=== PATIENT | male | born 1960 | race Caucasian/White ===

== ENCOUNTER 2018-01-15 16:44 | Inpatient (IN) | payer OTHER ==
[~2018-01-15] VITALS: Ht 157.5 cm; Wt 72.6 kg
[2018-01-15 16:53] VITALS: BP 105/69
--- NOTE | 2018-01-15 16:59 | NUR ---
PATIENT AMBULATED TO ER BED 4.
[2018-01-15] MEDS ORDERED: NACL 0.9% 1,000 ML IV ONE (17:00)
--- NOTE | 2018-01-15 17:00 | NUR ---
PATIENT PRESENTS TO ED WITH C/O BLEEDING . PT STATES HE HAD ROUTINE COLONSCOPY DONE TODAY. Patient STATES MD FOUND POLYPS AND REMOVED THEM. Heavy rectal bleeding since then with clots. Patient is pale and tachycardiac. Patient denies any cp, sob, or dizziness. . DENIES N/V/D; SKIN IS PINK/WARM/DRY; AAOX4 WITH EVEN AND STEADY GAIT; LUNGS CLEAR BL; HR EVEN AND REGULAR; PT DENIES ANY FEVER, CP, SOB, OR COUGH AT THIS TIME; PATIENT STATES PAIN OF 0/10 AT THIS TIME; VSS; PATIENT POSITIONED FOR COMFORT; HOB ELEVATED; BEDRAILS UP X2; BED DOWN. ER MD MADE AWARE OF PT STATUS.
[2018-01-15 17:34] LABS: BASOPHILS % (AUTO) 0.3 % (0.0-2.0); EOSINOPHILS # (AUTO) 0.2 K/uL (0-0.4); EOSINOPHILS % (AUTO) 1.8 % (0.0-4.0); HEMATOCRIT 36.1 % (36-52); HEMOGLOBIN 11.9 g/dL (12.0-18.0); LYMPHOCYTES # (AUTO) 0.5 K/uL (2.0-11.5); LYMPHOCYTES % (AUTO) 6.3 % (20.5-51.1); MEAN CORPUSCULAR HEMOGLOBIN 29 pg (27-31); MEAN CORPUSCULAR HGB CONC 33 g/dL (33-37); MEAN CORPUSCULAR VOLUME 87.2 fL (80-94); MONOCYTES # (AUTO) 0.6 K/uL (0.8-1.0); NEUTROPHILS % (AUTO) 84.6 % (42.2-75.2); PLATELET COUNT (AUTO) 212 K/uL (140-450); RED BLOOD CELL COUNT(AUTO) 4.14 MIL/uL (4.20-6.10); RED CELL DISTRIBUTION WIDTH 13.4 % (11.6-13.7); WHITE BLOOD COUNT (AUTO) 8.3 K/uL (4.8-10.8)
[2018-01-15 17:44] LABS: ANION GAP 15.6 (8-16); CARBON DIOXIDE 23.3 mmol/L (21-32); CREATININE 2.1 mg/dL (0.7-1.3); POTASSIUM 4.9 mmol/L (3.5-5.1)
[2018-01-15 17:50] LABS: TOTAL BILIRUBIN 0.7 mg/dL (0.0-1.0)
--- NOTE | 2018-01-15 18:35 | NUR ---
PATIENT SEEN LEANING ON THE DOOR BATHROOM DOOR ENTRANCE. PATIENT IS ALERT BUT FATIGUED. PATIENT IS COOL AND CLAMMY. PATIENT ASSISTED BACK TO BED. PATIENT DENIES ANY FALL. MD NOTIFIED OF PATIENT'S STATUS
--- NOTE | 2018-01-15 19:00 | NUR ---
CHARGE NURSE TAVIA SPOKE WITH DR BELLA AND INFORMED HIM ABOUT PATIENT'S NEAR SYNCOPAL EPISODE AND PATIENT'S CURRENT STATUS. AGREED TO ADMIT PATIENT IN ICU
[2018-01-15] MEDS ORDERED: NACL 0.45% 1,000 ML IV SCH ×2 (19:09→19:10)
--- NOTE | 2018-01-15 19:17 | NUR ---
Pt report given to NELLY LACY. Transfer of care at this time.
--- NOTE | 2018-01-15 19:40 | NUR ---
Patient will be admitted to [facility]. Admited to ICU. Will go to room 8. Belongings list completed. Report to JESSICA VILLEGAS.
--- NOTE | 2018-01-15 19:42 | NUR ---
RECEIVED PT FROM ER. PT AFEBRILE. AO X4. FOLLOWS COMMANDS. ABLE TO VERBALIZE NEEDS. BILAT CARD BRUSHER PRESENT. ON ROOM AIR. SINUS RHYTHM ON MONITOR. BOWEL SOUNDS HYPOACTIVE X 4 QUADRANTS. ABD SOFT, NONTENDER. NPO AT THIS TIME. PT CONTINENT TO BOWEL AND BLADDER, SKIN INTACT. IV SITE L FA 20G. PATENT INTACT. NO SIGNS OF ACUTE DISTRESS NOTED. BED IN LOWEST POSITION. CALL LIGHT WITHIN REACH. WILL CONTINUE TO MONITOR.
[2018-01-15 20:00] VITALS: BP 112/63
--- NOTE | 2018-01-15 20:01 | NUR ---
SON AT BEDSIDE AT THIS TIME
[2018-01-15] MEDS ORDERED: DEXT 5% / NACL 0.9% 500 ML IV SCH (20:30)
[2018-01-15] MEDS ORDERED: DEXTROSE 50% 50 ML SYR IVP PRN (20:30)
--- NOTE | 2018-01-15 20:30 | NUR ---
DR. GUIDO AT BEDSIDE TO EVALUATE PT. WILL CONTINUE TO FOLLOW UP ADDITIONAL ORDERS.
[2018-01-15] MEDS ORDERED: ONDANSETRON 4 MG/2 ML VIAL IVP PRN (20:35)
[2018-01-15] MEDS ORDERED: MORPHINE SULFATE 2 MG/ML SYR IVP PRN (20:35)
[2018-01-15] MEDS ORDERED: PANTOPRAZOLE 40 MG INJ VIAL IVP SCH (20:35)
[2018-01-15] MEDS ORDERED: MORPHINE SULFATE 4 MG/ML SYR IVP PRN (20:35)
[2018-01-15] MEDS: BLOOD GLUCOSE MONITORING 1 DEV DEV FS SCH (21:00)
--- NOTE | 2018-01-15 21:30 | NUR ---
BS CHECK AT THIS TIME. 325 MG/DL. ADMINISTERED 8 UNITS INSULIN VIA SLIDING SCALE.
[2018-01-15 22:00] VITALS: BP 118/65
[2018-01-15] MEDS: INSULIN LISPRO SLIDING SCALE 100 UNITS/ML VIAL SUBQ PRN (22:23)
--- NOTE | 2018-01-15 23:20 | NUR ---
PT REFUSES TO USE BEDPAN AND BEDSIDE COMMODE FOR BOWEL MOVEMENT. INSISTS ON USING REST ROOM EXPLAINED RISK V. BENEFITS X3. PT STILL REFUSES.
[2018-01-16] VITALS (12 sets, daily range): BP systolic 128–150; BP diastolic 63–81
--- NOTE | 2018-01-16 00:44 | NUR ---
LAB AT BEDSIDE AT THIS TIME FOR CBC BLOOD DRAW
[2018-01-16 00:45] LABS: HEMOGLOBIN 8.6 g/dL (12.0-18.0); MEAN CORPUSCULAR HEMOGLOBIN 29 pg (27-31); MEAN CORPUSCULAR HGB CONC 34 g/dL (33-37); MEAN CORPUSCULAR VOLUME 85.9 fL (80-94); PLATELET COUNT (AUTO) 149 K/uL (140-450); RED BLOOD CELL COUNT(AUTO) 2.91 MIL/uL (4.20-6.10); RED CELL DISTRIBUTION WIDTH 13.3 % (11.6-13.7); WHITE BLOOD COUNT (AUTO) 5.5 K/uL (4.8-10.8)
[2018-01-16 01:14] LABS: EOSINOPHILS % (MANUAL) 1 % (0-4); LYMPHOCYTES % (MANUAL) 13 % (20-46); MONOCYTES % (MANUAL) 9 % (5-12)
[2018-01-16] MEDS: DEXT 5% / NACL 0.9% 1,000 ML IV SCH ×3 (01:17→09:24)
--- NOTE | 2018-01-16 02:06 | NUR ---
CALLED RADIOLOGY DEPARTMENT TO SEE IF PT CAN BE TAKEN FOR CT SCAN. ACCORDING TO [facility], THEY ARE STILL BUST AND WILL JUST CALL ONCE THEY ARE READY FOR PT. WILL TRY AGAIN.
--- NOTE | 2018-01-16 03:46 | NUR ---
PT LEFT THE UNIT FOR A CT SCAN OF ABD/PELVIS. PT WAS ATTACHED TO TRANSPORT MONITOR. SR ON MONITOR. PT AAOX4. PT ACCOMPANIED BY NELLY.
--- NOTE | 2018-01-16 04:15 | NUR ---
PT HAD BM THIS TIME VIA BEDSIDE COMMODE. BLOOD IN STOOL NOTED. NO SIGNS OF ACUTE DISTRESS AT THIS TIME.
--- NOTE | 2018-01-16 05:13 | NUR ---
LAB AT BEDSIDE AT THIS TIME FOR BLOOD DRAW
[2018-01-16 06:03] LABS: BASOPHILS % (AUTO) 0.2 % (0.0-2.0); EOSINOPHILS # (AUTO) 0.1 K/uL (0-0.4); EOSINOPHILS % (AUTO) 2.1 % (0.0-4.0); HEMATOCRIT 24.3 % (36-52); HEMOGLOBIN 8.2 g/dL (12.0-18.0); LYMPHOCYTES # (AUTO) 0.5 K/uL (2.0-11.5); LYMPHOCYTES % (AUTO) 9.7 % (20.5-51.1); MEAN CORPUSCULAR HEMOGLOBIN 29 pg (27-31); MEAN CORPUSCULAR HGB CONC 34 g/dL (33-37); MEAN CORPUSCULAR VOLUME 86.4 fL (80-94); MONOCYTES # (AUTO) 0.7 K/uL (0.8-1.0); MONOCYTES % (AUTO) 13.5 % (1.7-9.3); NEUTROPHILS # (AUTO) 3.9 K/uL (1.8-7.7); NEUTROPHILS % (AUTO) 74.5 % (42.2-75.2); PLATELET COUNT (AUTO) 148 K/uL (140-450); RED BLOOD CELL COUNT(AUTO) 2.81 MIL/uL (4.20-6.10); RED CELL DISTRIBUTION WIDTH 13.3 % (11.6-13.7); WHITE BLOOD COUNT (AUTO) 5.2 K/uL (4.8-10.8)
[2018-01-16 06:41] LABS: MAGNESIUM 1.8 mg/dL (1.8-2.4); PHOSPHORUS 2.8 mg/dL (2.5-4.9)
[2018-01-16] MEDS: BLOOD GLUCOSE MONITORING 1 DEV DEV FS SCH ×4 (06:44→20:53)
[2018-01-16] MEDS: INSULIN LISPRO SLIDING SCALE 100 UNITS/ML VIAL SUBQ PRN ×3 (06:45→20:59)
--- NOTE | 2018-01-16 06:45 | NUR ---
BLOOD SUGAR 166MG/DL. 2 UNITS INSULIN ADMINISTERED VIA SLIDING SCALE
--- NOTE | 2018-01-16 07:30 | NUR ---
ENDORSED CARE TO INCOMING SHIFT FOR CONTINUITY OF CARE
--- NOTE | 2018-01-16 07:30 | NUR ---
Received patient in bed, alert oriented to self, time, place, situation, calm, denies pain, clear breath sounds, no cough, soft non tender abdomen, normal bowel sounds, informed patient is NPO except medications, no signs of bleeding right now. IV fluid 100 ml/hr at left antecubital gauge 20-site asymptomatic, no edema, no wounds. Kept head of bed up, call jaramillo within reach
--- NOTE | 2018-01-16 08:39 | NUR ---
PT RESTING IN BED COMFORTABLY. NO SOB, NO ACUTE DISTRESS NOTED. NO RECTAL BLEEDING NOTED. PT DENIES PAIN. DENIES TO PUT SCDS ON LOWER EXTREMITIES. STATED HE WANTS TO SLEEP AT THIS TIME. KEEP PT COVERED WITH BLANKETS, ON COMFORTABLE POSITION.
[2018-01-16] MEDS ORDERED: PANTOPRAZOLE 40 MG INJ VIAL IVP SCH (09:04)
--- NOTE | 2018-01-16 09:33 | NUR ---
PATIENT REQUESTED TO SPEAK TO HIS MD. TELEPHONED DR. WILSON. UPDATED OF PATIENT'S STATUS. RECEIVED ORDERS FOR IV IRON ONE TIME PER PHARMACY PROTOCOL AND CLEAR LIQUID DIET. READBACK VERIFIED WITH 2ND RN HAN
[2018-01-16] MEDS ORDERED: LEVOFLOXACIN 250 MG/D5 PREMIX 50 ML IV SCH (10:30)
[2018-01-16 10:35] LABS: HEMATOCRIT 23.2 % (36-52); HEMOGLOBIN 7.8 g/dL (12.0-18.0)
[2018-01-16 10:38] LABS: ANION GAP 13.5 (8-16); CARBON DIOXIDE 20.5 mmol/L (21-32); CREATININE 1.3 mg/dL (0.7-1.3)
[2018-01-16] MEDS ORDERED: SODIUM FERRIC GLUCONATE 125 MG in NACL 0.9% 100 ML IV SCH (11:00)
[2018-01-16] MEDS ORDERED: MAG SULF 2000 MG/WATER PREMIX 50 ML IV ONE (11:05)
[2018-01-16] MEDS ORDERED: POTASSIUM CHLORIDE 10 MEQ TABER PO SCH (11:30)
[2018-01-16] MEDS: NACL 0.9% 1,000 ML IV SCH (11:51)
--- NOTE | 2018-01-16 12:30 | NUR ---
GIVEN PATIENT HIS MEAL TRAY OF CLEAR LIQUIDS. HEAD OF BED UP. PATIENT ABLE TO FEED SELF. WILL CONTINUE TO MONITOR. CALL PANIAGUA WITHIN REACH
--- NOTE | 2018-01-16 12:48 | NUR ---
DR. BOYD PAGED AND HE CALLED BACK INFORMED OF PATIENT'S CHEST PAIN EPISODE AND MORPHINE GIVEN, BLOOD SUGAR 170, AND HEMOGLOBIN 7.8 PER MD CHECK TROPONIN, HOLD INSULIN FOR NOW, AND NO FURTHER ORDERS TO TRANSFUSE
[2018-01-16] MEDS: metroNIDAZOLE 500 MG/NS PREMIX 100 ML IV SCH ×2 (13:04→20:54)
[2018-01-16 13:19] LABS: BASOPHILS % (AUTO) 0.2 % (0.0-2.0); EOSINOPHILS # (AUTO) 0.2 K/uL (0-0.4); EOSINOPHILS % (AUTO) 3.5 % (0.0-4.0); HEMATOCRIT 24.6 % (36-52); HEMOGLOBIN 8.3 g/dL (12.0-18.0); LYMPHOCYTES # (AUTO) 0.7 K/uL (2.0-11.5); LYMPHOCYTES % (AUTO) 13.2 % (20.5-51.1); MEAN CORPUSCULAR HEMOGLOBIN 29 pg (27-31); MEAN CORPUSCULAR HGB CONC 34 g/dL (33-37); MEAN CORPUSCULAR VOLUME 86.6 fL (80-94); MONOCYTES # (AUTO) 0.6 K/uL (0.8-1.0); MONOCYTES % (AUTO) 12.6 % (1.7-9.3); NEUTROPHILS # (AUTO) 3.6 K/uL (1.8-7.7); NEUTROPHILS % (AUTO) 70.5 % (42.2-75.2); PLATELET COUNT (AUTO) 142 K/uL (140-450); RED BLOOD CELL COUNT(AUTO) 2.84 MIL/uL (4.20-6.10); RED CELL DISTRIBUTION WIDTH 13.4 % (11.6-13.7); WHITE BLOOD COUNT (AUTO) 5.2 K/uL (4.8-10.8)
[2018-01-16] MEDS ORDERED: METF1000 PO (14:18)
[2018-01-16] MEDS ORDERED: ORE25 PO (14:18)
[2018-01-16] MEDS ORDERED: ATOR40TA PO (14:18)
[2018-01-16] MEDS ORDERED: SITA100T8 PO (14:18)
[2018-01-16] MEDS ORDERED: LOSA50TA27 PO (14:18)
[2018-01-16] MEDS: MAGNESIUM SULFATE 1GM in DEXTROSE 5% 100 ML PREMIX IV SCH ×2 (14:28→15:30)
--- NOTE | 2018-01-16 14:58 | NUR ---
PT RESTING IN BED COMFORTABLY. NO RESPIRATORY DISTRESS NOTED. DENIES CHEST PAIN, SOB OR CHEST DISCOMFORT. DENIES NAUSEA. NO ACTIVE BLEEDING AT THIS TIME. VS WNL. WILL CONTINUE TO MONITOR.
--- NOTE | 2018-01-16 15:47 | NUR ---
MEDICATION RECONCILIATION DONE. DR. WELCH MADE AWARE ABOUT NEED TO REVIEW AND ORDER HOME MEDS.
--- NOTE | 2018-01-16 15:49 | NUR ---
RECEIVED CALL FROM DR. PIMENTEL. MADE AWARE ABOUT RECENT H&H RESULT. UPDATED PT CONDITION. WILL FOLLOW UP ON ORDER.
--- NOTE | 2018-01-16 15:57 | NUR ---
BLOOD SUGAR [id number]. WILL GIVE DUE HUMALOG PER SLIDING SCALE. PATIENT WILL ADVANCE DIET PER DR. AKBAR ORDERS Addendum: 01/16/18 at 1600 by Nichole Monique RN CORRECTION PER DR. WILSON
[2018-01-16] MEDS ORDERED: metFORMIN 500 MG TAB PO SCH (17:00)
--- NOTE | 2018-01-16 17:27 | NUR ---
PT BEING EVALUATED BY DR. PIMENTEL.
[2018-01-16] MEDS: ACETAMINOPHEN 325 MG TAB PO PRN (18:38)
--- NOTE | 2018-01-16 18:53 | NUR ---
patient awake oriented whole shift. No more chest pain, sinus rhythm, blood pressure with elevated episodes SBP 150-16Os, home medication losartan started. Peripheral line at left antecubital asymptomatic.Skin intact. Patient currently ambulated on standby assist to the restroom on bus monitor
[2018-01-16] MEDS ORDERED: LOSARTAN 50 MG TAB PO SCH (19:00)
--- NOTE | 2018-01-16 19:30 | NUR ---
AIRWAY CONTROLLER NOTIFIED ABOUT UNABLE TO GET JANUVIA MED FROM [facility]. WILL WAIT FOR MEDS TO ADMINISTER.
[2018-01-16 19:33] LABS: BASOPHILS % (AUTO) 0.3 % (0.0-2.0); EOSINOPHILS # (AUTO) 0.2 K/uL (0-0.4); EOSINOPHILS % (AUTO) 2.7 % (0.0-4.0); HEMATOCRIT 26.6 % (36-52); HEMOGLOBIN 8.9 g/dL (12.0-18.0); LYMPHOCYTES # (AUTO) 0.8 K/uL (2.0-11.5); LYMPHOCYTES % (AUTO) 10.6 % (20.5-51.1); MEAN CORPUSCULAR HEMOGLOBIN 29 pg (27-31); MEAN CORPUSCULAR HGB CONC 33 g/dL (33-37); MEAN CORPUSCULAR VOLUME 87.5 fL (80-94); MONOCYTES # (AUTO) 0.8 K/uL (0.8-1.0); MONOCYTES % (AUTO) 11.3 % (1.7-9.3); NEUTROPHILS # (AUTO) 5.5 K/uL (1.8-7.7); NEUTROPHILS % (AUTO) 75.1 % (42.2-75.2); PLATELET COUNT (AUTO) 169 K/uL (140-450); RED BLOOD CELL COUNT(AUTO) 3.04 MIL/uL (4.20-6.10); RED CELL DISTRIBUTION WIDTH 13.5 % (11.6-13.7); WHITE BLOOD COUNT (AUTO) 7.4 K/uL (4.8-10.8)
--- NOTE | 2018-01-16 19:33 | NUR ---
PATIENT BACK TO BED WITHOUT INCIDENCE. REPORT GIVEN TO NIGHT RN
--- NOTE | 2018-01-16 20:00 | NUR ---
AAOX4, SR ON THE MONITOR, ON ROOM AIR, RESPIRATIONS NORMAL, IVF NS AT 60 ML/HR, NO BLOODY STOOLS NOTED, DENIES PAIN, FAMILY AT BEDSIDE.
[2018-01-16] MEDS ORDERED: DEXT 5% / NACL 0.9% 1,000 ML IV SCH (20:30)
[2018-01-16] MEDS ORDERED: SIMVASTATIN 40 MG TAB PO SCH (21:00)
--- NOTE | 2018-01-16 21:00 | NUR ---
REPORT GIVEN AND ENDORSED CARE TO SUZETTE SANCHEZ RN.
--- NOTE | 2018-01-16 21:05 | NUR ---
RECEIVED REPORT FROM NELLY POWER FOR CONTINUITY OF CARE. VS STABLE AT THIS TIME. SR ON MONITOR. PT DENIES PAIN AT THIS TIME. DENIES ANY DISCOMFORT. PT IN ROOM AIR. RESPIRATIONS ARE EVEN AND UNLABORED. PERIPHERAL IV ACCESS IN PLACE; PATENT, INTACT AND ASYMPTOMATIC. ALL SAFETY PRECAUTIONS ARE IN PLACE. WILL CONTINUE TO MONITOR PT.
--- NOTE | 2018-01-16 22:30 | NUR ---
PT WAS ASKING FOR EAR PLUGS. WAITING FOR PANTS CUTTER TO BRING SOME IN THE UNIT. VS STABLE. PT DENIES ANY DISCOMFORT AT THIS TIME.
[2018-01-17] VITALS (8 sets, daily range): BP systolic 129–155; BP diastolic 52–79
--- NOTE | 2018-01-17 00:10 | NUR ---
RESPIRATIONS ARE EVEN AND UNLABORED. PT IN BED AND LAYING DOWN. SR ON MONITOR. VS WNL.
[2018-01-17 01:10] LABS: BASOPHILS % (AUTO) 0.2 % (0.0-2.0); EOSINOPHILS # (AUTO) 0.2 K/uL (0-0.4); EOSINOPHILS % (AUTO) 3.4 % (0.0-4.0); HEMATOCRIT 22.3 % (36-52); HEMOGLOBIN 7.6 g/dL (12.0-18.0); LYMPHOCYTES # (AUTO) 0.7 K/uL (2.0-11.5); LYMPHOCYTES % (AUTO) 14.4 % (20.5-51.1); MEAN CORPUSCULAR HEMOGLOBIN 29 pg (27-31); MEAN CORPUSCULAR HGB CONC 34 g/dL (33-37); MONOCYTES # (AUTO) 0.6 K/uL (0.8-1.0); MONOCYTES % (AUTO) 12.6 % (1.7-9.3); NEUTROPHILS # (AUTO) 3.5 K/uL (1.8-7.7); NEUTROPHILS % (AUTO) 69.4 % (42.2-75.2); PLATELET COUNT (AUTO) 136 K/uL (140-450); RED BLOOD CELL COUNT(AUTO) 2.59 MIL/uL (4.20-6.10); RED CELL DISTRIBUTION WIDTH 13.5 % (11.6-13.7); WHITE BLOOD COUNT (AUTO) 5.1 K/uL (4.8-10.8)
--- NOTE | 2018-01-17 02:19 | NUR ---
STILL NO CHANGE IN PT CONDITION. NO BLOOD STOOLS. ALL SAFETY PRECAUTIONS ARE IN PLACE. CALL LIGHT WITHIN REACH. BED AT LOWEST POSSIBLE POSITION. WILL CONTINUE TO MONITOR.
[2018-01-17] MEDS: NACL 0.9% 1,000 ML IV SCH ×2 (03:50→10:00)
--- NOTE | 2018-01-17 04:26 | NUR ---
VS STABLE AT THIS TIME. PT DOES NOT APPEAR TO BE IN ANY DISTRESS OR IN ANY DISCOMFORT. ALL SAFETY PRECAUTIONS ARE IN PLACE. URINAL AND CALL LIGHT WITHIN REACH.
[2018-01-17] MEDS: metroNIDAZOLE 500 MG/NS PREMIX 100 ML IV SCH ×2 (05:06→12:21)
--- NOTE | 2018-01-17 05:35 | NUR ---
SPECIMEN FOR CBC ALREADY DRAWN BY MESSAGE AND DELIVERY SERVICE PRICER. WILL WAIT FOR THE RESULT.
[2018-01-17 05:57] LABS: BASOPHILS % (AUTO) 0.3 % (0.0-2.0); EOSINOPHILS # (AUTO) 0.2 K/uL (0-0.4); EOSINOPHILS % (AUTO) 3.4 % (0.0-4.0); HEMATOCRIT 23.1 % (36-52); LYMPHOCYTES # (AUTO) 0.7 K/uL (2.0-11.5); LYMPHOCYTES % (AUTO) 15.1 % (20.5-51.1); MEAN CORPUSCULAR HEMOGLOBIN 30 pg (27-31); MEAN CORPUSCULAR HGB CONC 35 g/dL (33-37); MEAN CORPUSCULAR VOLUME 86.6 fL (80-94); MONOCYTES # (AUTO) 0.5 K/uL (0.8-1.0); MONOCYTES % (AUTO) 11.6 % (1.7-9.3); NEUTROPHILS # (AUTO) 3.2 K/uL (1.8-7.7); NEUTROPHILS % (AUTO) 69.6 % (42.2-75.2); PLATELET COUNT (AUTO) 130 K/uL (140-450); RED BLOOD CELL COUNT(AUTO) 2.66 MIL/uL (4.20-6.10); RED CELL DISTRIBUTION WIDTH 13.5 % (11.6-13.7); WHITE BLOOD COUNT (AUTO) 4.6 K/uL (4.8-10.8)
[2018-01-17] MEDS: BLOOD GLUCOSE MONITORING 1 DEV DEV FS SCH ×2 (06:45→11:37)
--- NOTE | 2018-01-17 07:11 | NUR ---
REPORT GIVEN TO MORNING RN, LASHAE, FOR CONTINUITY OF CARE. VS STABLE AT THIS TIME.
--- NOTE | 2018-01-17 07:25 | NUR ---
RECEIVED REPORT FROM BODY SPECIALIST RN. PT IS ASLEEP, EASILY AROUSABLE, AAOX4, ABLE TO FOLLOW COMMANDS AND MAKE NEEDS KNOWN. VSS, AFEBRILE. SINUS RHYTHM ON MONITOR, + S1 S2 HEARD. PT IS ON ROOM AIR, NO SOB OR RESPIRATORY NOTED. BREATHING EVEN AND UNLABORED. NO C/O CHEST PAIN. PERIPHERAL IV G20 TO LEFT ANTECUBITAL ASYMPTOMATIC, PATENT AND INTACT, RUNNING IV FLUID NORMAL SALINE AT 60 ML/HR. ABDOMEN SOFT, NONTENDER. NO ACTIVE BLEEDING NOTED. ABLE TO MOVE ALL EXTREMITIES. PALPABLE PULSES ON ALL EXTREMITIES. SKIN IS DRY AND WARM TO TOUCH. BED IN LOWEST POSITION AND CALL LIGHT WITHIN REACH. WILL CONTINUE TO MONITOR.
[2018-01-17 07:30] LABS: MAGNESIUM 1.7 mg/dL (1.8-2.4)
--- NOTE | 2018-01-17 08:13 | NUR ---
BREAKFAST PROVIDED. PT STATED HE WANTED TO SLEEP MORE AND WILL HAVE IT LATER.
[2018-01-17] MEDS ORDERED: PANTOPRAZOLE 40 MG INJ VIAL IVP SCH (09:00)
[2018-01-17] MEDS ORDERED: LOSARTAN 50 MG TAB PO SCH (09:00)
[2018-01-17] MEDS ORDERED: HYDROCHLOROTHIAZIDE 25 MG TAB PO SCH (09:00)
--- NOTE | 2018-01-17 09:06 | NUR ---
PT HAD BREAKFAST. MEDICATIONS ADMINISTERED ORDERED. PT TOLERATED WELL.
--- NOTE | 2018-01-17 09:35 | NUR ---
DR. WELCH MADE AWARE OF MAGNESIUM LEVEL OF 1.7. ORDER RECEIVED. ALSO MADE AWARE THAT THE LAST H&H WAS AT 0600. PER DR. WELCH, NO NEED TO CONTINUE H&H Q6HR.
[2018-01-17] MEDS ORDERED: MAG SULF 2000 MG/WATER PREMIX 50 ML IV SCH (10:00)
--- NOTE | 2018-01-17 10:33 | NUR ---
DR. WELCH IN TO SEE PT. WILL FOLLOW UP ON ORDERS.
[2018-01-17] MEDS ORDERED: CIPR500T4 PO (10:38)
[2018-01-17] MEDS ORDERED: METR250T2 PO (10:38)
--- NOTE | 2018-01-17 10:40 | NUR ---
PT SEEN AND EXAMINED BY DR. GUIDO. WILL FOLLOW UP WITH NEW ORDERS.
[2018-01-17 10:49] LABS: ANION GAP 12.1 (8-16); CARBON DIOXIDE 24.6 mmol/L (21-32); CREATININE 1.4 mg/dL (0.7-1.3); POTASSIUM 4.7 mmol/L (3.5-5.1)
--- NOTE | 2018-01-17 11:14 | NUR ---
PATIENT HAS BEEN SCREENED AND CATEGORIZED MODERATE NUTRITION RISK. PATIENT WILL BE SEEN WITHIN 3-5 DAYS OF ADMISSION. 01/18/18 01/20/18 DANIEL WEAVER MBA, RD
[2018-01-17] MEDS ORDERED: SODIUM FERRIC GLUCONATE 125 MG in NACL 0.9% 100 ML IV SCH (12:00)
--- NOTE | 2018-01-17 12:10 | NUR ---
NO CHANGE IN CONDITION AT THIS TIME. RESTING COMFORTABLY. NO ACUTE DISTRESS NOTED. VSS.
[2018-01-17] MEDS: INSULIN LISPRO SLIDING SCALE 100 UNITS/ML VIAL SUBQ PRN (12:22)
[2018-01-17] MEDS: ACETAMINOPHEN 325 MG TAB PO PRN (12:43)
--- NOTE | 2018-01-17 13:15 | NUR ---
PT HAD A MODERATE AMOUNT OF BROWN COLORED BOWEL MOVEMENT. NO BLEEDING NOTED.
--- NOTE | 2018-01-17 14:30 | NUR ---
PT IS RESTING COMFORTABLY AT THIS TIME. NO S/SX OF DISTRESS NOTED. VSS. WILL CONTINUE TO MONITOR.
--- NOTE | 2018-01-17 15:14 | NUR ---
PT DISCHARGED HOME ACCOMPANIED BY VIA PRIVATE VEHICLE. DISCHARGE INSTRUCTIONS AND EDUCATIONS GIVEN. PT AND STATED THEY WILL FOLLOW UP WITH PCP. PT IS IN STABLE CONDITION UPON DISCHARGE.
== END 2018-01-17 15:14 | disposition home or self-care (01) | DRG 810 ==
LOC: MED 16:44 → MIC 19:02
PROVIDERS: ADMIT Internal Medicine; ATTEND Internal Medicine
DX: K91.840 Postprocedural hemorrhage of a digestive system organ or structure following a digestive system procedure (principal); E11.22 Type 2 diabetes mellitus with diabetic chronic kidney disease; I95.9 Hypotension, unspecified; K57.32 Diverticulitis of large intestine without perforation or abscess without bleeding; E78.5 Hyperlipidemia, unspecified; N18.9 Chronic kidney disease, unspecified; I12.9 Hypertensive chronic kidney disease with stage 1 through stage 4 chronic kidney disease, or unspecified chronic kidney disease; R07.89 Other chest pain; Y83.8 Other surgical procedures as the cause of abnormal reaction of the patient, or of later complication, without mention of misadventure at the time of the procedure; Z79.84 Long term (current) use of oral hypoglycemic drugs; Z79.899 Other long term (current) drug therapy; Z87.442 Personal history of urinary calculi; Y92.89 Other specified places as the place of occurrence of the external cause
CPT/HCPCS: 36415; 80048; 80053; 82948; 83036; 83735; 84100; 84484; 85018; 85025; 85610; 85730; 87081; 93005; 96360; 99285; C9113; J1815; J1956; J2270; J2916; J3475; J3490; J7030; J7042

== ENCOUNTER 2018-08-20 15:02 | Inpatient (IN) | payer OTHER ==
[~2018-08-20] VITALS: Ht 157.5 cm; Wt 68.5 kg
[2018-08-20 02:00] VITALS: BP 108/71
[2018-08-20] MEDS: NACL 0.9% 1,000 ML IV SCH (11:05)
[~2018-08-20 15:02] MED LIST: ATOR40TA PO; CIPR500T4 PO; LOSA50TA66 PO; METF1000 PO; METR250T2 PO; ORE25 PO; SITA100T8 PO
--- NOTE | 2018-08-20 15:11 | NUR ---
PATIENT AMBULATED TO ER BED 4.
[2018-08-20 15:21] VITALS: BP 137/82
--- NOTE | 2018-08-20 15:25 | NUR ---
C/O PALPITATIONS AND WEAKNESS X10 DAYS. PT DENIES SOB, N/V/FEVER OR RECENT ILLNESS. PT REPORTS HR BEING IN THE 115-120S AT HOME. FSBS IS 181. PT DENIES BLURRY VISION, IS ALERT AND ANSWERING QUESTIONS APPROPRIATELY. PERRLA. BLE/BUE STRENGTH EQUAL. BED IN LOW POSITION, SIDE RAIL UP X1, PT PUT IN GOWN AND PLACED ON BEDSIDE VETERANS SERVICES SPECIALIST AT THIS TIME.
--- NOTE | 2018-08-20 16:00 | NUR ---
ERMD AT BEDSIDE
--- NOTE | 2018-08-20 17:00 | NUR ---
PT RESTING IN BED, BLANKET PROVIDED PER REQUEST. SON AT BEDSIDE
[2018-08-20 17:08] LABS: BASOPHILS % (AUTO) 0.3 % (0.0-2.0); EOSINOPHILS # (AUTO) 0.4 K/uL (0-0.4); EOSINOPHILS % (AUTO) 4.7 % (0.0-4.0); HEMATOCRIT 34.1 % (36-52); HEMOGLOBIN 11.4 g/dL (12.0-18.0); LYMPHOCYTES # (AUTO) 1.2 K/uL (2.0-11.5); LYMPHOCYTES % (AUTO) 15.6 % (20.5-51.1); MEAN CORPUSCULAR HEMOGLOBIN 28 pg (27-31); MEAN CORPUSCULAR HGB CONC 33 g/dL (33-37); MEAN CORPUSCULAR VOLUME 85.3 fL (80-94); MONOCYTES # (AUTO) 0.7 K/uL (0.8-1.0); MONOCYTES % (AUTO) 8.6 % (1.7-9.3); NEUTROPHILS # (AUTO) 5.5 K/uL (1.8-7.7); NEUTROPHILS % (AUTO) 70.8 % (42.2-75.2); PLATELET COUNT (AUTO) 175 K/uL (140-450); RED CELL DISTRIBUTION WIDTH 13.2 % (11.6-13.7); WHITE BLOOD COUNT (AUTO) 7.7 K/uL (4.8-10.8)
[2018-08-20 17:16] LABS: ANION GAP 15.7 (8-16); CARBON DIOXIDE 25.7 mmol/L (21-32); CREATININE 2.2 mg/dL (0.7-1.3); POTASSIUM 5.4 mmol/L (3.5-5.1)
[2018-08-20 17:18] LABS: MAGNESIUM 1.8 mg/dL (1.8-2.4)
[2018-08-20 17:23] LABS: ALBUMIN 3.8 g/dL (3.4-5.0); TOTAL BILIRUBIN 0.5 mg/dL (0.0-1.0)
[2018-08-20 17:25] LABS: PROTHROMBIN TIME 9.3 secs (10.8-13.4)
[2018-08-20 17:37] LABS: THYROID STIMULATING HORMONE 0.48 uIU/mL (0.34-3.74)
[2018-08-20] MEDS ORDERED: DEXTROSE 50% 50 ML SYR IVP ONE (17:40)
[2018-08-20] MEDS ORDERED: INSULIN REGULAR, HUMAN 100 UNIT/ML VIAL IVP ONE (17:40)
[2018-08-20] MEDS ORDERED: ALBUTEROL 0.083% 2.5 MG/3 ML NEBU INH ONE (17:40)
[2018-08-20] MEDS ORDERED: SODIUM BICARBONATE 8.4% PFS 50 MEQ/50 ML SYR IVP ONE (17:40)
[2018-08-20] MEDS ORDERED: SODIUM POLYSTYRENE 15 GM/60 ML UDBTL PO ONE (17:40)
[2018-08-20] MEDS ORDERED: NACL 0.9% 1,000 ML IV ONE (17:40)
[2018-08-20] MEDS ORDERED: DEXTROSE 50% 50 ML SYR IVP PRN (18:00)
[2018-08-20] MEDS ORDERED: ONDANSETRON 4 MG/2 ML VIAL IVP PRN (18:05)
[2018-08-20] MEDS ORDERED: ACETAMINOPHEN 325 MG TAB PO PRN (18:05)
[2018-08-20] MEDS ORDERED: MORPHINE SULFATE 4 MG/ML SYR IVP PRN (18:05)
[2018-08-20] MEDS ORDERED: HYDROcodone/APAP 5/325 MG 1 TAB TAB PO PRN (18:05)
[2018-08-20] MEDS ORDERED: hydrALAZINE 20 MG/ML VIAL IVP PRN (18:05)
[2018-08-20] MEDS ORDERED: ALBUTEROL 0.083% 2.5 MG/3 ML NEBU INH PRN (18:05)
--- NOTE | 2018-08-20 18:40 | NUR ---
Patient will be admitted to care of DR. CHRISTIAN. Admited to TELEMETRY. Will go to room 120A. Belongings list completed. Report to NELLY DAVID.
--- NOTE | 2018-08-20 18:40 | NUR ---
RECEIVED ENDORSEMENT FROM ED NURSE. PATIENT ARRIVED VIA GURNEY. VITALS WERE OBTAINED. PATIENT IS STABLE, AAOX4, DIVEHI SPEAKING. WILL ENDORSE TO WEB SERVICES PROFESSIONAL.
--- NOTE | 2018-08-20 19:15 | NUR ---
ENDORSED TO EYEGLASS INSPECTOR NURSE FOR CONTINUITY OF CARE. PATIENT IS STABLE AT THIS TIME.
--- NOTE | 2018-08-20 19:15 | NUR ---
RECEIVED REPORT AND PATIENT FROM AM SHIFT NURSE. PATIENT WAS ADMITTED AT 1830. PATIENT IS LYING DOWN, AWAKE, ALERT, ORIENTED, WITH FAMILY MEMBERS AT BEDSIDE. PATIENT IS ON ROOM AIR, HAS IV ON LEFT AC SALINE LOCK. PATIENT DENIES ANY PAIN AT THIS TIME. BED IS IN LOW POSITION, SIDE RAILS ARE UP, AND CALL LIGHT IS WITHIN REACH. WILL MONITOR PATIENT THROUGHOUT SHIFT.
--- NOTE | 2018-08-20 21:30 | NUR ---
MADE ROUNDS. PATIENT LYING DOWN, ASLEEP WITH NO SIGNS OF DISTRESS. WILL CONTINUE TO MONITOR PATIENT.
[2018-08-20] MEDS: BLOOD GLUCOSE MONITORING 1 DEV DEV FS SCH (21:57)
[2018-08-20] MEDS: INSULIN LISPRO SLIDING SCALE 100 UNITS/ML VIAL SUBQ PRN (22:58)
--- NOTE | 2018-08-20 23:04 | NUR ---
HUNG IV NORMAL SALINE 1,000 ML AT 75 ML/HR RATE. PATIENT IS TOLERATING IV FLUID WELL.
[2018-08-21] VITALS: BP 111/63
--- NOTE | 2018-08-21 | NUR ---
VITAL SIGNS TAKEN AND CHARTED. PATIENT DENIES PAIN AT THIS TIME. WILL CONTINUE TO MONITOR PATIENT.
--- NOTE | 2018-08-21 00:45 | NUR ---
PATIENT COMPLAINS OF CHEST PAIN 08/25. ADMINISTERED PO PAIN MEDICATION ORDERED. PATIENT TOLERATED IT WELL. WILL CONTINUE TO MONITOR PATIENT.
--- NOTE | 2018-08-21 02:00 | NUR ---
MADE ROUNDS. PATIENT LYING DOWN, ASLEEP, WITH NO SIGNS OF DISTRESS.
[2018-08-21 04:00] VITALS: BP 133/73
--- NOTE | 2018-08-21 04:00 | NUR ---
VITAL SIGNS TAKEN AND CHARTED. PATIENT STATED PAIN MEDICATION GIVEN AT 0045 WAS EFFECTIVE. DENIES PAIN AT THIS TIME. WILL CONTINUE TO MONITOR PATIENT.
--- NOTE | 2018-08-21 06:00 | NUR ---
PATIENT IS LYING DOWN, ASLEEP, WITH NO SIGNS OF DISTRESS.
--- NOTE | 2018-08-21 07:15 | NUR ---
ENDORSED PATIENT TO AM SHIFT NURSE FOR CONTINUITY OF CARE. PATIENT IS LYING DOWN, ASLEEP, AND IN STABLE CONDITION AT THIS TIME.
[2018-08-21] MEDS: NACL 0.9% 1,000 ML IV SCH ×2 (07:21→12:17)
[2018-08-21] MEDS: BLOOD GLUCOSE MONITORING 1 DEV DEV FS SCH ×4 (07:47→21:10)
[2018-08-21 08:00] VITALS: BP 142/76
--- NOTE | 2018-08-21 08:00 | NUR ---
PT STABLE UPON MORNING ROUNDS. PT LYING DOWN, AWAKE. DENIES PAIN.
[2018-08-21 08:10] LABS: BASOPHILS % (AUTO) 0.5 % (0.0-2.0); EOSINOPHILS # (AUTO) 0.3 K/uL (0-0.4); EOSINOPHILS % (AUTO) 5.9 % (0.0-4.0); HEMATOCRIT 29.5 % (36-52); LYMPHOCYTES # (AUTO) 1.1 K/uL (2.0-11.5); LYMPHOCYTES % (AUTO) 22.6 % (20.5-51.1); MEAN CORPUSCULAR HEMOGLOBIN 29 pg (27-31); MEAN CORPUSCULAR HGB CONC 34 g/dL (33-37); MEAN CORPUSCULAR VOLUME 84.8 fL (80-94); MONOCYTES # (AUTO) 0.5 K/uL (0.8-1.0); MONOCYTES % (AUTO) 9.4 % (1.7-9.3); NEUTROPHILS % (AUTO) 61.6 % (42.2-75.2); PLATELET COUNT (AUTO) 145 K/uL (140-450); RED BLOOD CELL COUNT(AUTO) 3.47 MIL/uL (4.20-6.10); RED CELL DISTRIBUTION WIDTH 13.2 % (11.6-13.7); WHITE BLOOD COUNT (AUTO) 4.8 K/uL (4.8-10.8)
[2018-08-21 08:39] LABS: ANION GAP 12.1 (8-16); CARBON DIOXIDE 26.1 mmol/L (21-32); CREATININE 1.7 mg/dL (0.7-1.3); POTASSIUM 4.2 mmol/L (3.5-5.1)
[2018-08-21 08:42] LABS: MAGNESIUM 1.5 mg/dL (1.8-2.4); PHOSPHORUS 3.9 mg/dL (2.5-4.9)
[2018-08-21] MEDS: ATORVASTATIN 20 MG TAB PO SCH (08:58)
[2018-08-21] MEDS: ASPIRIN 81 MG TAB.CHEW PO SCH (08:59)
--- NOTE | 2018-08-21 09:30 | NUR ---
PATIENT WAS AWAKE, ALERT. RESPIRATION EVEN, UNLABOR ON ROOM AIR. MEDS WERE GIVEN PER ORDER. NO DISTRESS NOTED AT THIS TIME
[2018-08-21] MEDS ORDERED: MAG SULF 2000 MG/WATER PREMIX 50 ML IV ONE (11:00)
[2018-08-21] MEDS ORDERED: TAMSULOSIN 0.4 MG CAP PO SCH (11:20)
[2018-08-21 12:00] VITALS: BP 140/72
[2018-08-21] MEDS: INSULIN LISPRO SLIDING SCALE 100 UNITS/ML VIAL SUBQ PRN ×3 (12:21→21:13)
--- NOTE | 2018-08-21 12:30 | NUR ---
PATIENT WAS AWAKE, ALERT. RESPIRATION EVEN, UNLABOR ON ROOM AIR. DENIED PAIN, SOB. NO DISTRESS NOTED AT THIS TIME. FAMILY WAS AT BEDSIDE
--- NOTE | 2018-08-21 14:15 | NUR ---
PATIENT WAS AWAKE, ALERT, AMBULATING WITH BATHROOM, STEADY GAIT. NO DISTRESS NOTED AT THIS TIME
--- NOTE | 2018-08-21 15:43 | NUR ---
PATIENT RESTING COMFORTABLY IN BED, EVEN RESPIRATIONS/UNLABORED BREATHING. TOOK VITAL SIGNS ON PT. DENIES ANY PAIN AT THIS TIME. WILL CONTINUE TO MONITOR
[2018-08-21 16:00] VITALS: BP 140/70
--- NOTE | 2018-08-21 18:51 | NUR ---
PATIENT IS AWAKE, ALERT. RESPIRATION EVEN, UNLABOR ON ROOM AIR. IV PATENT AND INTACT. PATIENT WAS EXPLAINED THAT HE NEEDED TO STAY ANOTHER DAY FOR FURTHER EVALUATION. PATIENT VERBALIZED UNDERSTANDING. NO DISTRESS NOTED AT THIS TIME
--- NOTE | 2018-08-21 19:16 | NUR ---
UPDATES ON PATIENT GIVEN TO STAFFING SPECIALIST NURSE. PATIENT STABLE UPON CHANGE OF SHIFT.
--- NOTE | 2018-08-21 19:17 | NUR ---
RECEIVED PT IN STABLE CONDITION FROM AM NURSE FOR CONTINUITY OF CARE. AWAKE,ALERT AND ORIENTED X4. ON TEL MONITOR -SR. AMBULATORY . WITH NO C.O PAIN AT THIS TIME. HAS IVF INFUSING WELL ON THE LT AC G#20. CLEAR AND PATENT. PLAN OF CARE DISCUSSED AND VERBALIZED UNDERSTANDING. FREQ CHECK NEEDED. BED ON LOW POSITION AND CALL LIGHT PLACED WITHIN REACH. WILL CONTINUE TO MONITOR.
[2018-08-21 20:00] VITALS: BP 98/57
--- NOTE | 2018-08-21 21:13 | NUR ---
BLOOD SUGAR WAS CJECKED RESULT 242. INSULIN HUMALOG 4 UNITS SUBQ GIVEN . PROVIDED WITH SOME SNACK. WILL CONTINUE TO MONITOR.
--- NOTE | 2018-08-21 22:08 | NUR ---
CHECKED ON PT. NO MORE C/O DISCOMFORT /PAIN NOTED.
[2018-08-22] VITALS (7 sets, daily range): BP systolic 117–147; BP diastolic 64–75
--- NOTE | 2018-08-22 | NUR ---
MADE ROUNDS. PT AWAKE. NO C/O PAIN AT THIS TIME. VITAL SIGNS STABLE. WILL CONTINUE TO MONITOR.
[2018-08-22] MEDS: NACL 0.9% 1,000 ML IV SCH ×3 (02:35→23:21)
--- NOTE | 2018-08-22 02:35 | NUR ---
MADE ROUNDS. PT IS AWAKE. NO C/O ANY PAIN NOTED.
--- NOTE | 2018-08-22 04:00 | NUR ---
VITAL SIGNS STABLE . NO C/O ANY CHEST PAIN NOTED. WILL CONTINUE TO MONITOR.
--- NOTE | 2018-08-22 05:55 | NUR ---
PATIENT HAS BEEN SCREENED AND CATEGORIZED MODERATE NUTRITION RISK. PATIENT WILL BE SEEN WITHIN 3-5 DAYS OF ADMISSION. 08/22/18-08/24/18 MAMIE ABREU MS, RDN
[2018-08-22] MEDS: BLOOD GLUCOSE MONITORING 1 DEV DEV FS SCH ×4 (06:00→20:35)
--- NOTE | 2018-08-22 06:00 | NUR ---
BLOOD SUGAR WAS CHECKED THIS AM RESULT 148. NO INSULIN NEEDED.
--- NOTE | 2018-08-22 07:16 | NUR ---
ENDORSED PT IN STABLE CONDITION TO AM NURSE.
--- NOTE | 2018-08-22 07:37 | NUR ---
PATIENT WAS SLEEPING COMFORTABLY, EASILY AROUSABLE BY NAME. RESPIRATION EVEN, UNLABOR ON ROOM AIR. SKIN DRY AND WARM. IV PATENT AND INTACT. DENIED CHEST PAIN, SOB AT THIS TIME. PLAN OF CARE WAS DISCUSSED WITH PATIENT. BED AT LOW POSITION, SIDE RAILS UP. CALL LIGHT WITHIN REACH
[2018-08-22 08:56] LABS: BASOPHILS % (AUTO) 0.3 % (0.0-2.0); EOSINOPHILS # (AUTO) 0.3 K/uL (0-0.4); EOSINOPHILS % (AUTO) 6.2 % (0.0-4.0); HEMATOCRIT 29.6 % (36-52); LYMPHOCYTES # (AUTO) 0.9 K/uL (2.0-11.5); LYMPHOCYTES % (AUTO) 20.2 % (20.5-51.1); MEAN CORPUSCULAR HEMOGLOBIN 29 pg (27-31); MEAN CORPUSCULAR HGB CONC 34 g/dL (33-37); MEAN CORPUSCULAR VOLUME 85.2 fL (80-94); MONOCYTES # (AUTO) 0.4 K/uL (0.8-1.0); MONOCYTES % (AUTO) 9.2 % (1.7-9.3); NEUTROPHILS % (AUTO) 64.1 % (42.2-75.2); PLATELET COUNT (AUTO) 157 K/uL (140-450); RED BLOOD CELL COUNT(AUTO) 3.47 MIL/uL (4.20-6.10); WHITE BLOOD COUNT (AUTO) 4.6 K/uL (4.8-10.8)
[2018-08-22 09:29] LABS: ANION GAP 15.5 (8-16); CARBON DIOXIDE 24.6 mmol/L (21-32); CREATININE 1.5 mg/dL (0.7-1.3); POTASSIUM 4.1 mmol/L (3.5-5.1)
[2018-08-22] MEDS: ATORVASTATIN 20 MG TAB PO SCH (09:30)
--- NOTE | 2018-08-22 09:30 | NUR ---
PATIENT WAS SLEEPING COMFORTABLY. MEDS WERE GIVEN PER ORDER. NO DISTRESS NOTED AT THIS TIME
[2018-08-22] MEDS: METOPROLOL SUCCINATE 50 MG TABER PO SCH (09:31)
[2018-08-22] MEDS: ASPIRIN 81 MG TAB.CHEW PO SCH (09:31)
[2018-08-22] MEDS: TAMSULOSIN 0.4 MG CAP PO SCH (09:31)
[2018-08-22 09:35] LABS: MAGNESIUM 1.8 mg/dL (1.8-2.4); PHOSPHORUS 3.5 mg/dL (2.5-4.9)
[2018-08-22] MEDS: INSULIN LISPRO SLIDING SCALE 100 UNITS/ML VIAL SUBQ PRN ×2 (12:05→20:39)
--- NOTE | 2018-08-22 12:21 | NUR ---
PATIENT RESTING COMFORTABLY IN BED. RESPIRATION EVEN, UNLABOR ON ROOM AIR. NO DISTRESS NOTED AT THIS TIME
--- NOTE | 2018-08-22 14:00 | NUR ---
PATIENT WAS AWAKE, ALERT. RESPIRATION EVEN, UNLABOR ON ROOM AIR. NO DISTRESS NOTED AT THIS TIME. FAMILY AT BEDSIDE
[2018-08-22] MEDS ORDERED: GLIP5TAB4 PO (14:58)
[2018-08-22] MEDS ORDERED: METO50TE2 PO (14:58)
[2018-08-22] MEDS ORDERED: TAMS0.4C96 PO (14:58)
[2018-08-22] MEDS ORDERED: ASPI81CT95 PO (14:58)
--- NOTE | 2018-08-22 16:30 | NUR ---
PATIENT WAS AWAKE, ALERT. RESPIRATION EVEN, UNLABOR ON ROOM AIR. DENIED CHEST PAIN, SOB. NO DISTRESS NOTED. MD WAS AT BEDSIDE.
[2018-08-22] MEDS ORDERED: NACL 0.9% 500 ML IV SCH (16:45)
--- NOTE | 2018-08-22 18:23 | NUR ---
PATIENT WAS AWAKE, WATCHING TV COMFORTABLY. RESPIRATION EVEN, UNLABOR ON ROOM AIR. IV PATENT AND INTACT. NO DISTRESS NOTED AT THIS TIME.
--- NOTE | 2018-08-22 19:12 | NUR ---
ENDORSEMENT GIVEN TO WOOL HANDLER NURSE. PATIENT IS STABLE AT THIS TIME.
--- NOTE | 2018-08-22 19:13 | NUR ---
RECEIVED PT IN STABLE CONDITION FROM AM NURSE. AWAKE,ALERT AND ORIENTED X4. ON TELE MONITOR. FAMILY MEMBERS AT BEDSIDE. NO C/O ANY DISCOMFORT NOR PAIN NOTED. HAS IVF INFUSING WELL ON THE LT ACg#20. CLEAR AND PATENT. PLAN OF CARE DISCUSSED AND VERBALIZED UNDERSTANDING. BED ON LOW POSITION. CALL LIGHT PLACED WITHIN REACH. WILL CONTINUE TO MONITOR.
--- NOTE | 2018-08-22 20:00 | NUR ---
PT MOVED TO ROOM 125 A. PT IN STABLE CONDITION.
--- NOTE | 2018-08-22 20:39 | NUR ---
BLOOD SUGAR WAS CHECKED RESULT 283. HUMALOG INSULIN COVERAGE 5 UNITS GIVEN SUBQ, PROVIDED WITH SOME SNACK . WILL CONTINUE TO MONITOR.
--- NOTE | 2018-08-22 23:55 | NUR ---
PAGED DR. DORSEY FOR PT C/O COUGH FOR FEW DAYS. DR. DANIELS PERSONNEL RECRUITER AND WILL WAIT FOR CALL BACK.
--- NOTE | 2018-08-23 00:15 | NUR ---
DR. DANIELS HYDRAULIC BLOCKER FOR DR. DORSEY CALLED BACK AND MADE AWARE OF PT C/O COUGH WITH ORDER MADE.
[2018-08-23] MEDS ORDERED: PROMETHAZINE DM 6.25/15MG-5ML ORASYR PO PRN (00:20)
--- NOTE | 2018-08-23 00:50 | NUR ---
PROMETHAZINE DM NOT AVAILABLE TONIGHT PER TONORN TRANSFORMER STOCK CLERK. CALLED AGAIN DR. DANIELS. HE CHANGED TO ROBITUSSIN WITH CODEINE 5 ML PO Q6HRS PRN COUGH.
[2018-08-23] MEDS ORDERED: guaiFENesin/CODEINE 100/10MG 5 ML UDC PO PRN (00:55)
--- NOTE | 2018-08-23 02:00 | NUR ---
MADE ROUNDS . PT ASLEEP. NO S/S OF ANY DISCOMFORT NOTED.
--- NOTE | 2018-08-23 04:30 | NUR ---
PT IS ASLEEP. VITAL SIGNS TAKEN . STABLE. NO DISCOMFORT NOTED.
[2018-08-23 04:35] VITALS: BP 147/71
[2018-08-23] MEDS: NACL 0.9% 1,000 ML IV SCH (05:22)
[2018-08-23 06:00] VITALS: BP 147/71
[2018-08-23 06:02] LABS: ANION GAP 12.6 (8-16); CARBON DIOXIDE 25.8 mmol/L (21-32); CREATININE 1.6 mg/dL (0.7-1.3); POTASSIUM 4.4 mmol/L (3.5-5.1)
[2018-08-23] MEDS: BLOOD GLUCOSE MONITORING 1 DEV DEV FS SCH ×2 (06:09→12:29)
[2018-08-23] MEDS: INSULIN LISPRO SLIDING SCALE 100 UNITS/ML VIAL SUBQ PRN (06:10)
[2018-08-23 06:11] LABS: MAGNESIUM 1.5 mg/dL (1.8-2.4); PHOSPHORUS 3.1 mg/dL (2.5-4.9)
[2018-08-23 06:22] LABS: PROTHROMBIN TIME 9.5 secs (10.8-13.4)
[2018-08-23 06:29] LABS: BASOPHILS % (AUTO) 0.3 % (0.0-2.0); EOSINOPHILS # (AUTO) 0.3 K/uL (0-0.4); EOSINOPHILS % (AUTO) 6.3 % (0.0-4.0); HEMATOCRIT 28.5 % (36-52); HEMOGLOBIN 9.6 g/dL (12.0-18.0); LYMPHOCYTES # (AUTO) 0.9 K/uL (2.0-11.5); LYMPHOCYTES % (AUTO) 17.8 % (20.5-51.1); MEAN CORPUSCULAR HEMOGLOBIN 29 pg (27-31); MEAN CORPUSCULAR HGB CONC 34 g/dL (33-37); MEAN CORPUSCULAR VOLUME 84.8 fL (80-94); MONOCYTES # (AUTO) 0.6 K/uL (0.8-1.0); MONOCYTES % (AUTO) 10.8 % (1.7-9.3); NEUTROPHILS # (AUTO) 3.4 K/uL (1.8-7.7); NEUTROPHILS % (AUTO) 64.8 % (42.2-75.2); PLATELET COUNT (AUTO) 168 K/uL (140-450); RED BLOOD CELL COUNT(AUTO) 3.36 MIL/uL (4.20-6.10); RED CELL DISTRIBUTION WIDTH 13.4 % (11.6-13.7); WHITE BLOOD COUNT (AUTO) 5.3 K/uL (4.8-10.8)
--- NOTE | 2018-08-23 06:50 | NUR ---
PAGED DR. DORSEY FOR Magnesium level 1.[address] ANALILIA BOO PRECISION AIRCRAFT SYSTEMS ASSEMBLER. WILL WAIT FOR CALL BACK.
--- NOTE | 2018-08-23 07:25 | NUR ---
HOLD METFORMIN TODAY PER DR TYLER. ENDORSED THIS AND THE PT IN STABLE CONDITION TO AM NURSE FOR CONTINUITY OF CARE.
--- NOTE | 2018-08-23 07:26 | NUR ---
RECEIVED REPORT FROM CHICKEN CLEANER NURSE NURY FOR CONTINUITY OF CARE. PT IN STABLE CONDITION. RESPIRATIONS EVEN AND UNLABORED. IV INTACT AND PATENT. SAFETY MEASURES IN PLACE. CALL LIGHT AT BEDSIDE. BED IN LOW POSITION. WILL CONTINUE TO MONITOR.
[2018-08-23 08:00] VITALS: BP 114/69
--- NOTE | 2018-08-23 08:40 | NUR ---
ORDER TO TRANSFER PATIENT TO [facility], CALLED [facility] [phone] TANSPORTATION AUTH OBTAINED [id number]. WILL CALL BACK FOR CATH AUTH.
--- NOTE | 2018-08-23 08:43 | NUR ---
PAGED DR. GUIDO IN FOR DR. DORSEY DUE TO PT MAG 1.5.
--- NOTE | 2018-08-23 08:45 | NUR ---
DR. GUIDO RETURNED PAGE AND PUT IN MAG FOR PT LOW MAG 1.5.
--- NOTE | 2018-08-23 08:51 | NUR ---
CALLED [facility] [phone] SPOKE WITH DAVID, FAXED CLINICALS TO [phone].
[2018-08-23] MEDS: ASPIRIN 81 MG TAB.CHEW PO SCH (09:00)
[2018-08-23] MEDS ORDERED: MAG SULF 2000 MG/WATER PREMIX 50 ML IV SCH (09:00)
--- NOTE | 2018-08-23 09:10 | NUR ---
CALLED [facility] [phone] SPOKE WITH TIERNEY, TRANSPORTATION ARRANGED TO BINDERY WORKER PATENT AT 12 NOON, RN NURSE COURT MADE AWARE, RN LÓPEZ CHARGE NURSE NOTIFIED.
[2018-08-23] MEDS: ATORVASTATIN 20 MG TAB PO SCH (09:15)
[2018-08-23] MEDS: TAMSULOSIN 0.4 MG CAP PO SCH (09:16)
[2018-08-23] MEDS: METOPROLOL SUCCINATE 50 MG TABER PO SCH (09:18)
--- NOTE | 2018-08-23 10:11 | NUR ---
PT LYING IN BED SLEEPING AT THIS TIME. RESPIRATIONS EVEN AND UNLABORED. WILL CONTINUE TO MONITOR.
--- NOTE | 2018-08-23 12:10 | NUR ---
GAVE REPORT TO INOCENCIO STAFF NURSE AT [facility] FOR CONTINUITY OF CARE. INOCENCIO VERBALIZED UNDERSTANDING OF REPORT. ALL QUESTIONS ANSWERED AT THIS TIME.
--- NOTE | 2018-08-23 12:25 | NUR ---
GAVE DISCHARGE INSTRUCTIONS AND PRESCRIPTIONS, PT VERBALIZED UNDERSTANDING OF INSTRUCTIONS. IV DISCONNECTED. ID BAND REMOVED. REPORT GIVEN TO TRANSPORT TEAM. TRANSPORT TEAM VERBALIZED UNDERSTANDING OF REPORT. PT PLACED ON GURNEY. PT IN STABLE CONDITION.
== END 2018-08-23 12:25 | disposition home or self-care (01) | DRG 190 ==
LOC: MED 15:02 → MTU 18:11 → MMU 08-21 00:59
PROVIDERS: ADMIT Internal Medicine Pulmonary Disease; ATTEND Internal Medicine Pulmonary Disease
DX: I21.A1 Myocardial infarction type 2 (principal); N17.9 Acute kidney failure, unspecified; E11.21 Type 2 diabetes mellitus with diabetic nephropathy; E83.42 Hypomagnesemia; E11.9 Type 2 diabetes mellitus without complications; E87.5 Hyperkalemia; N20.0 Calculus of kidney; E78.5 Hyperlipidemia, unspecified; I10 Essential (primary) hypertension; I25.10 Atherosclerotic heart disease of native coronary artery without angina pectoris; I25.2 Old myocardial infarction
CPT/HCPCS: 36415; 71045; 76770; 80048; 80053; 82948; 83036; 83735; 83880; 84100; 84443; 84484; 85025; 85610; 85730; 87081; 93005; 94640; 96361; 96374; 96375; 99291; J1815; J3475; J7030; J7613; Q0092

== ENCOUNTER 2019-11-09 13:36 | Observation (INO) | payer OTHER, SELFPAY ==
[~2019-11-09] VITALS: Ht 157.5 cm; Wt 74.8 kg
[~2019-11-09 13:36] MED LIST changes: +ASPI81CT95 PO; -CIPR500T4 PO; +GLIP5TAB4 PO; -LOSA50TA66 PO; -METF1000 PO; +METO50TE2 PO; -METR250T2 PO; -ORE25 PO; +TAMS0.4C96 PO
[2019-11-09 13:45] VITALS: BP 192/90
--- NOTE | 2019-11-09 13:51 | NUR ---
59/M bib family with complaints of chest pain with N/V x4 days. Pt states his chest pain began on Thursday. Pt describes pain to left upper chest, non radiating, 09/25. Pt also reports N/V, pt vomitted in ER lobby prior to entering. Pt appears lethargic, pale, cool to touch. Pt also c/o dizziness while lying down. Pt states the dizziness improves if his eyes are closed. No active vomiting noted at this time. Pt placed into a gown, placed on cardiac nurse practitioner, pulse oximetry and blood pressure monitoring. lodge officer shows sinus rhythm. 98% on room air. Pt denies fever or chills. Denies contact with positive COVID. Denies recent travel. Denies diarrhea. Pt AOX4, lethargic but answering all questions appropriately. Pt states he uses insulin at night but cannot recall the name.
--- NOTE | 2019-11-09 14:13 | NUR ---
Pt report given to Daniel. Transfer of care at this time.
[2019-11-09 14:18] LABS: BASOPHILS % (AUTO) 0.4 % (0.0-2.0); EOSINOPHILS # (AUTO) 0.3 K/uL (0-0.4); EOSINOPHILS % (AUTO) 6.8 % (0.0-4.0); HEMATOCRIT 36.8 % (36-52); HEMOGLOBIN 11.9 g/dL (12.0-18.0); LYMPHOCYTES # (AUTO) 0.6 K/uL (2.0-11.5); LYMPHOCYTES % (AUTO) 11.4 % (20.5-51.1); MEAN CORPUSCULAR HEMOGLOBIN 27 pg (27-31); MEAN CORPUSCULAR HGB CONC 32 g/dL (33-37); MEAN CORPUSCULAR VOLUME 83.7 fL (80-94); MONOCYTES # (AUTO) 0.5 K/uL (0.8-1.0); NEUTROPHILS # (AUTO) 3.6 K/uL (1.8-7.7); NEUTROPHILS % (AUTO) 71.4 % (42.2-75.2); PLATELET COUNT (AUTO) 130 K/uL (140-450); RED CELL DISTRIBUTION WIDTH 14.7 % (11.6-13.7)
[2019-11-09] MEDS ORDERED: LORazepam 2 MG/ML VIAL IVP ONE (14:35)
[2019-11-09 14:49] LABS: ANION GAP 14.6 (8-16); CARBON DIOXIDE 24.7 mmol/L (21-32); POTASSIUM 4.3 mmol/L (3.5-5.1); TOTAL BILIRUBIN 0.6 mg/dL (0.0-1.0)
--- NOTE | 2019-11-09 14:51 | NUR ---
Miguel arriaga in [facility] - 11/09/19 at 1613 by VARUN PT TAKEN TO CT VIA WHEELCHAIR
[2019-11-09] MEDS ORDERED: NACL 0.9% 1,000 ML IV ONE (15:35)
[2019-11-09] MEDS ORDERED: LOSA50TA57 PO (15:37)
[2019-11-09] MEDS ORDERED: ROSU20TA1 PO (15:37)
[2019-11-09] MEDS ORDERED: CLOP75TA26 PO (15:37)
[2019-11-09] MEDS ORDERED: ALOG25TA PO (15:37)
[2019-11-09] MEDS ORDERED: AMLO5TAB PO (15:37)
[2019-11-09] MEDS ORDERED: ASPIRIN 81 MG TAB.CHEW PO ONE (15:45)
--- NOTE | 2019-11-09 16:00 | NUR ---
COVID SWAB PERFORMED AT BEDSIDE AND WALKED TO LAB
[2019-11-09] MEDS: NACL 0.9% 1,000 ML IV SCH (16:01)
[2019-11-09] MEDS ORDERED: MORPHINE SULFATE 4 MG/ML SYR IVP PRN (16:05)
[2019-11-09] MEDS ORDERED: HYDROcodone/APAP 5/325 MG 1 TAB TAB PO PRN (16:05)
[2019-11-09] MEDS ORDERED: NITROGLYCERIN 0.4 MG TAB SL PRN (16:15)
[2019-11-09 16:50] VITALS: BP 192/90
--- NOTE | 2019-11-09 16:50 | NUR ---
RECEIVED REPORT FROM BUSINESS CONTINUITY DIRECTOR. PT CAME FROM HOME. C/O: CHEST PAIN, N/V X4DAYS. DX: R/O ACS. HX: HTN, DM. NKA. RT AC 20 G RUNNING NS AT 80. PT IS ON RA. SKIN IS INTACT. PT IS AMBULATORY.
--- NOTE | 2019-11-09 17:04 | NUR ---
Patient will be admitted to care of [facility]. Admited to TELE. Will go to room 106A. Belongings list completed. Report to CJ VILLEGAS.
--- NOTE | 2019-11-09 19:00 | NUR ---
TRANSFER OF CARE TO PM RN, PA. NO SIGNS OF DISTRESS. VS STABLE.
--- NOTE | 2019-11-09 19:12 | NUR ---
RECEIVED CONTINUITY OF CARE FROM AM NURSE. PT IS RESTING IN BED, BREATHING SPONTANEOUSLY ON ROOM AIR. SKIN IS WARM, DRY, INTACT. IV IS PATENT, ASYMPTOMATIC, INTACT, A/OX4. PLACE OF CARE DISCUSSED WITH PT. PT IS ABLE TO MAKE NEEDS KNOW. CALL LIGHT IN REACH. SAFETY PRECAUTIONS IN PLACE.
[2019-11-09 20:00] VITALS: BP 149/72
--- NOTE | 2019-11-09 23:12 | NUR ---
PT ASKED NURSE TO CHECK HIS BLOOD SUGAR BECAUSE OF A PMH OF DM. BLOOD SUGAR WAS ASSESSED AND RECEIVED 175. NO ORDERS FOR PROTOCOL. AWAITING FOR PROTOCOL ORDERS FROM MD. PER PT, HE'S MADE RIVAS OF PHM OF DM.
[2019-11-10] VITALS: BP 121/61
--- NOTE | 2019-11-10 01:19 | NUR ---
CHECKED ON PT. PT IS SLEEPING. NO SIGNS OF DISTRESS AT THIS TIME.
--- NOTE | 2019-11-10 03:10 | NUR ---
CHECKED ON PT. PT IS SLEEPING. NO SIGNS OF DISTRESS NOTED.
[2019-11-10 04:00] VITALS: BP 138/82
[2019-11-10 06:23] LABS: BASOPHILS % (AUTO) 0.3 % (0.0-2.0); EOSINOPHILS # (AUTO) 0.3 K/uL (0-0.4); EOSINOPHILS % (AUTO) 5.6 % (0.0-4.0); HEMATOCRIT 33.1 % (36-52); LYMPHOCYTES # (AUTO) 0.7 K/uL (2.0-11.5); LYMPHOCYTES % (AUTO) 10.7 % (20.5-51.1); MEAN CORPUSCULAR HEMOGLOBIN 28 pg (27-31); MEAN CORPUSCULAR HGB CONC 33 g/dL (33-37); MONOCYTES # (AUTO) 0.6 K/uL (0.8-1.0); MONOCYTES % (AUTO) 9.7 % (1.7-9.3); NEUTROPHILS # (AUTO) 4.5 K/uL (1.8-7.7); NEUTROPHILS % (AUTO) 73.7 % (42.2-75.2); PLATELET COUNT (AUTO) 113 K/uL (140-450); RED BLOOD CELL COUNT(AUTO) 3.98 MIL/uL (4.20-6.10); RED CELL DISTRIBUTION WIDTH 14.2 % (11.6-13.7); WHITE BLOOD COUNT (AUTO) 6.1 K/uL (4.8-10.8)
[2019-11-10 06:38] LABS: ALBUMIN 3.4 g/dL (3.4-5.0); ANION GAP 13.4 (8-16); CARBON DIOXIDE 24.5 mmol/L (21-32); CREATININE 1.6 mg/dL (0.6-1.3); POTASSIUM 3.9 mmol/L (3.5-5.1); TOTAL BILIRUBIN 0.6 mg/dL (0.0-1.0)
[2019-11-10] MEDS: NACL 0.9% 1,000 ML IV SCH ×2 (06:48→17:19)
--- NOTE | 2019-11-10 07:30 | NUR ---
RECEIVED BEDSIDE REPORT FROM [employer] RN PA FOR CONTINUITY OF CARE. PT IS SLEEPING IN BED, RESPIRATIONS EVEN AND UNLABORED ON ROOM AIR. EASILY AROUSABLE BY VOICE, AAOX4, DENIES PAIN AT THIS TIME. SKIN IS WARM, DRY, INTACT. IV IS PATENT, ASYMPTOMATIC, DRESSING INTACT. BED LOCKED & LOW, BEDRAILS UP X2, CALL LIGHT AND BEDSIDE TABLE WITHIN REACH. WILL CONTINUE TO MONITOR.
[2019-11-10 08:00] VITALS: BP 130/79
[2019-11-10] MEDS ORDERED: CRUSHER, PILL MC ONE (08:42)
--- NOTE | 2019-11-10 08:52 | NUR ---
PT SITTING UP IN BED, EATING BREAKFAST TRAY. NAD. CONTINUES TO DENY SOB AND CP. STATES MILD HEADACHE AND FATIGUE, HOWEVER WANTS TO EAT BREAKFAST FIRST AND IF STILL WITH HEADACHE AFTER EATING PT WILL NOTIFY STAFF.
[2019-11-10] MEDS ORDERED: NON-FORMULARY ITEM (Rosuvastatin Calcium* (Crestor*) 20 MG) PO SCH (09:00)
[2019-11-10] MEDS ORDERED: ASPIRIN 81 MG TAB.CHEW PO SCH (09:00)
[2019-11-10] MEDS ORDERED: amLODIPine 5 MG TAB PO SCH (09:00)
[2019-11-10] MEDS ORDERED: METOPROLOL SUCCINATE 50 MG TABER PO SCH (09:00)
[2019-11-10] MEDS ORDERED: CLOPIDOGREL 75 MG TAB PO SCH (09:00)
--- NOTE | 2019-11-10 09:01 | NUR ---
PATIENT HAS BEEN SCREENED AND CATEGORIZED MODERATE NUTRITION RISK. PATIENT WILL BE SEEN WITHIN 3-5 DAYS OF ADMISSION. 11/12/19 11/14/[address]
--- NOTE | 2019-11-10 09:17 | NUR ---
DISCHARGE PLANNING: THIS IS A 59 Y/O MALE PATIENT FROM HOME, WHO CAME IN DUE TO CHEST PAIN. PAST MEDICAL HISTORY INCLUDE DIABETES, HTN, STENT PLACEMENT X3. INITIAL DIAGNOSIS OF CHEST PAIN R/O ACS. CURRENT LABS INCLUDE WBC 6.1, H/H 11.0/33.1, NA/K 139/3.9, BUN/CREA 19/1.6, TROP <0.017. RAPID COVID NEGATIVE. ON PLAVIX. NEGATIVE HEAD CT. NEGATIVE CHEST XR. CARDIO CONSULT IN PLACE. DC PLAN TO HOME ONCE STABLE. Addendum: 11/10/19 at 1340 by Briseyda Levi CM PER ATTENDING DR KELLEY WILL KEEP PATIENT OBS PENDING CARDIO'S RECOMMENDATIONS AND ECHO RESULTS.
--- NOTE | 2019-11-10 11:01 | NUR ---
[employer] DIRECTOR NOTE: Patient's Orientation Person Situation Place Time Information Provided By PATIENT Comments SW WAS UNABLE TO MEET PATIENT AT BEDSIDE. SW COMPLETED ASSESSMENT TELEPHONICALLY. SW VERIFIED DEMOGRAPHICS WITH PATIENT. PER PATIENT, HE NOW LIVES AT: [address] [place] [address]. Junior Programmer, Realtionship and Phone Number KIRBY DILL [phone] Healthcare Power of Downstream Biomanufacturing Technician No Does Patient Have a POLST No Identifying Problems No Social Work Triggers Is A Social Work Consult Needed No Mandate Report Filed No Explanation Of Identifying Problems PATIENT IS A 59-YEAR-OLD MALE ADMITTED FOR CHEST PAIN R/O ACS. PATIENTH HAS PMHX OF DIABETES AND HYPERTENSION. PATIENT REPORTED NO HISTORY OF MENTAL HEALTH OR SUBSTANCE ABUSE. Admitted From Home Pre-Admission Level Of Functioning Status Independent/Ambulatory Prior Resources/Services Used In Last 12 Months No Prior Resources Used Prior DME No Prior DME Used Dialysis Comments PATIENT REPORTED NOT RECEIVING DIALYSIS. Living Situation Lives With Family House Patient Had Caregiver No Home Support No Caregiver Issues Financial Issues No Known Financial Issue Referral To The Financial Counselor Needed No Factors/Needs Home Health Services Explanation And Or Other Factors Affecting/Possible DC Needs IHSS RESOURCES WERE PROVIDED. Pt/Rep Participated In Discharge Plan Yes Patient/Family Agress With Discharge Plan Yes Discharge Plan Comments TENTATIVE DISCHARGE PLAN IS FOR PATIENT TO RETURN HOME. DC Plan Status Initiated
--- NOTE | 2019-11-10 11:40 | NUR ---
TECH AT BEDSIDE FOR ECHO
[2019-11-10] MEDS: ACETAMINOPHEN 325 MG TAB PO PRN ×2 (12:35→20:39)
--- NOTE | 2019-11-10 12:35 | NUR ---
TYLENOL ADMINISTERED FOR PT C/O MILD HEADACHE
[2019-11-10 12:38] VITALS: BP 137/75
[2019-11-10 16:00] VITALS: BP 133/64
--- NOTE | 2019-11-10 19:20 | NUR ---
REPORT GIVEN TO ENAMEL BUFFER NELLY BAHENA AT BEDSIDE, TRANSFER OF CARE AT THIS TIME. PT IN STABLE CONDITION
--- NOTE | 2019-11-10 19:21 | NUR ---
RECEIVED REPORT FROM VIVI RNTONIA. PT AOX4 ON ROOM AIR. RESPIRATIONS EVEN AND UNLABORED. NO C/O PAIN AT THIS TIME. IS SITE INTACT AND PATENT. SAFETY MEASURES IN PLACE. CALL LIGHT WITHIN REACH. WILL CONTINUE TO MONITOR.
--- NOTE | 2019-11-10 20:39 | NUR ---
TYLENOL ADMINISTERED FOR PT C/O MILD HEADACHE
[2019-11-10 20:42] VITALS: BP 139/74
[2019-11-10] MEDS ORDERED: SIMVASTATIN 40 MG TAB PO SCH (21:00)
--- NOTE | 2019-11-10 21:30 | NUR ---
PROVIDED DISCHARGED PAPERS AND EDUCATION TO PT. PT VERBALIZED UNDERSTANDING. REMOVED IV AND ID BANDS. PT TOLERATED WELL. PT DISCHARGED VIA WHEELCHAIR TO FRONT LOBBY. PT PICKED UP BY NEPHEW. PT IS IN STABLE CONDITION
== END 2019-11-10 21:30 | disposition home or self-care (01) ==
LOC: MED 13:36 → MTU 16:08
PROVIDERS: ADMIT Hospitalist; ATTEND Hospitalist
DX: R07.89 Other chest pain (principal); Z20.828 Contact with and (suspected) exposure to other viral communicable diseases; R42 Dizziness and giddiness; R11.2 Nausea with vomiting, unspecified; N17.9 Acute kidney failure, unspecified; E86.0 Dehydration; R94.31 Abnormal electrocardiogram [ECG] [EKG]; I25.10 Atherosclerotic heart disease of native coronary artery without angina pectoris; I10 Essential (primary) hypertension; E11.9 Type 2 diabetes mellitus without complications; E78.5 Hyperlipidemia, unspecified; Z95.5 Presence of coronary angioplasty implant and graft; Z79.82 Long term (current) use of aspirin; Z79.84 Long term (current) use of oral hypoglycemic drugs; Z79.899 Other long term (current) drug therapy
CPT/HCPCS: 36415; 70450; 71045; 80053; 83880; 84484; 85025; 87426; 93005; 93307; 96361; 96374; 99285; G0378; J2060; J7030; Q0092